=== PATIENT | female | born 1955 | race Caucasian/White ===

== ENCOUNTER 2016-08-05 18:34 | Emergency (ER) | payer OTHER ==
[2016-08-05 19:23] VITALS: BP 140/83
--- NOTE | 2016-08-05 19:33 | EDM.PDOC ---
ED HPI GENERAL MEDICAL PROBLEM - General Chief Complaint: Upper Extremity Injury/Pain Stated Complaint: FELL ON LEFT WRIST/PAIN/SWELLING Time Seen by Provider: 08/05/16 19:30 Source of Information: Reports: Patient History Limitations: Reports: No Limitations - History of Present Illness INITIAL COMMENTS - FREE TEXT/NARRATIVE: pt was doing some brushing and fell and landed on the left hand . She now has pain in the left wrist. Onset: Today Duration: Hour(s): Location: Reports: Upper Extremity, Left Associated Symptoms: Reports: Other ( pain in left wrist. ) Left Wrist Pain Score (Numeric/FACES): 6 - Related Data Allergies Allergy/AdvReac Type Severity Reaction Status Date / Time No Known Allergies Allergy Verified 08/05/16 19:24 Home Meds: Home Meds Acetaminophen [Tylenol] 650 mg PO Q4H PRN 08/05/16 [History] Aspirin 325 mg PO DAILY 08/05/16 [History] Docusate Sodium [Colace] 100 mg PO DAILY 08/05/16 [History] FLUoxetine [PROzac] 60 mg PO DAILY 08/05/16 [History] Furosemide [Lasix] 80 mg PO DAILY 08/05/16 [History] Levothyroxine [Sythroid] 100 mcg PO DAILY 08/05/16 [History] Metoprolol Tartrate [Lopressor] 50 mg PO DAILY 08/05/16 [History] Nabumetone [Relafen] 500 mg PO BID 08/05/16 [History] Omeprazole 10 mg PO DAILY 08/05/16 [History] amLODIPine [Norvasc] 5 mg PO DAILY 08/05/16 [History] buPROPion [Wellbutrin] 75 mg PO BEDTIME 08/05/16 [History] Review of Systems - Review of Systems Review Of Systems: See Below Constitutional: Reports: No Symptoms Eyes: Reports: No Symptoms Ears: Reports: No Symptoms Nose: Reports: No Symptoms Mouth/Throat: Reports: No Symptoms Respiratory: Reports: No Symptoms Cardiovascular: Reports: No Symptoms GI/Abdominal: Reports: No Symptoms Genitourinary: Reports: No Symptoms Musculoskeletal: Reports: Other (Pain in left wrist. ) Skin: Reports: No Symptoms ED EXAM, GENERAL - Physical Exam Exam: See Below Free Text/Narrative:: pt arrived with pain in the left wrist after a fall. She also notes swelling. Exam Limited By: No Limitations General Appearance: Alert, Anxious, Mild Distress Ears: Normal TMs Nose: Normal Inspection Throat/Mouth: Normal Inspection Head: Atraumatic Neck: Normal Inspection, Other ( pt has an abrasion on her chin. ) Respiratory/Chest: No Respiratory Distress Cardiovascular: Regular Rate, Rhythm GI/Abdominal: Soft, Non-Tender Rectal (Female) Exam: Deferred Back Exam: Normal Inspection Extremities: Other (left wrist tender and swelling. ) Course - Vital Signs Last Recorded V/S: Last Vital Signs Temp 35.9 C 08/05/16 19:16 Pulse 79 08/05/16 19:16 Resp 19 08/05/16 19:16 BP 140/83 08/05/16 19:16 Pulse Ox 98 08/05/16 19:16 - Orders/Labs/Meds Orders: Active Orders 24 hr Category Date Time Status Wrist Comp Min 3V Lt [CR] Stat Exams 08/05/16 19:29 Taken - Re-Assessments/Exams Free Text/Narrative Re-Assessment/Exam: 08/05/16 20:02 xray revealed a normal wrist with no fracture. a short arm splint was applied and she was given a refillable ice pack. Departure - Departure Time of Disposition: 20:04 Disposition: Home, Self-Care 01 Condition: Fair Clinical Impression: Sprain of left wrist - Discharge Information Forms: ED Department Discharge Care Plan Goals: elevate left wrist, short arm splint -- as needed for discomfort. tylenol or motrin for discomfort. - My Orders Last 24 Hours: My Active Orders 08/05/16 19:29 Wrist Comp Min 3V Lt [CR] Stat - Assessment/Plan Last 24 Hours: My Active Orders 08/05/16 19:29 Wrist Comp Min 3V Lt [CR] Stat
--- NOTE | 2016-08-07 10:54 | CR ---
No fracture or dislocation. Degenerative changes at the carpus. Flattening of the right fourth metac arpal head may be arthritic. This can be seen in AVN.
== END 2016-08-05 20:16 | disposition home or self-care (01) ==
LOC: JP.ED 18:34
DX: S63.502A Unspecified sprain of left wrist, initial encounter (principal); Z79.899 Other long term (current) drug therapy; W19.XXXA Unspecified fall, initial encounter
CPT/HCPCS: 29125; 73110-26-LT; 73110-LT; 99284-25